=== PATIENT | female | born 1995 ===

== ENCOUNTER 2019-07-19 20:15 | Emergency (ER) | payer SELFPAY ==
[2019-07-19 20:21] VITALS: BP 128/85
--- NOTE | 2019-07-19 20:26 | Event Note ---
ED Screening Note Date of service: 07/19/19 Time: 20:23 ED Screening Note: This initial assessment/diagnostic orders/clinical plan/treatment(s) is/are subject to change based on patients health status, clinical progression and re- assessment by fellow clinical providers in the ED. Further treatment and workup at subsequent clinical providers discretion. Patient/guardian urged not to elope from the ED as their condition may be serious if not clinically assessed and managed. 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 He further states that Tylenol, Motrin and Dayquil with no resolution.
== END 2019-07-20 01:20 | disposition left against medical advice (07) ==
LOC: ED 20:15
DX: R50.9 Fever, unspecified (principal); R05 Cough; Z53.21 Procedure and treatment not carried out due to patient leaving prior to being seen by health care provider

== ENCOUNTER 2019-07-20 11:07 | Inpatient (IN) | payer OTHER ==
[2019-07-20] MEDS ORDERED: IBUPROFEN 600 MG TAB PO ONE (11:39)
[2019-07-20] MEDS ORDERED: ACETAMINOPHEN 325 MG TAB PO ONE ×2 (11:40→22:10)
--- NOTE | 2019-07-20 11:41 | Emergency Department Report ---
Blank Doc - Documentation Documentation: 23-year-old female that presents with fever, tachycardia, cough, sore throat. This initial assessment/diagnostic orders/clinical plan/treatment(s) is/are subject to change based on patient's health status, clinical progression and re- assessment by fellow clinical providers in the ED. Further treatment and workup at subsequent clinical providers discretion. Patient/guardians urged not to elope from the ED as their condition may be serious if not clinically assessed and managed. Initial orders include: 1- Patient sent to [facility] for further evaluation and treatment 2- flu/strep swabs 3- tylneol 4- CXR
[2019-07-20 13:01] LABS: Bilirubin,Urine NEG (Negative); Blood,Urine LG (Negative); Color,Urine Red (Yellow); HCG Qualitative,Urine Negative (Negative); Mucus,Urine 2+ /HPF; RBC,Urine > 182.0 /HPF (0.0-6.0); Urobilinogen,Urine < 2.0 mg/dL (<2.0)
--- NOTE | 2019-07-20 13:56 | XRay Report ---
CHEST 2 VIEWS INDICATION / CLINICAL INFORMATION: fever/cough. COMPARISON: None available. FINDINGS: SUPPORT DEVICES: None. HEART / MEDIASTINUM: No significant abnormality. LUNGS / PLEURA: Airspace opacities are noted along the right lower lobe. The lungs are otherwise solomon r. No significant pleural effusion. No pneumothorax. ADDITIONAL FINDINGS: No significant additional findings. IMPRESSION: Suspected right lower lobe pneumonia. Follow-up PA and lateral chest radiographs in 2-3 weeks are rec ommended to document clearing. Signer Name: Audi Rico MD Signed: 07/20/2019 1:52 PM Workstation Name: [id number]
[2019-07-20] MEDS ORDERED: SODIUM CHLORIDE 0.9% 1000 ML 1,000 ML IV ONE ×3 (15:04→17:58)
--- NOTE | 2019-07-20 15:21 | Emergency Department Report ---
<ROSA MARIA DIOP - Last Filed: 07/20/19 17:58> - General Chief Complaint: Upper Respiratory Infection Stated Complaint: FEVER,COUGH Time Seen by Provider: 07/20/19 11:39 Source: patient Mode of arrival: Ambulatory Limitations: No Limitations - History of Present Illness Initial Comments: 23-year-old female presents to the emergency room complaining of cough headache sore throat chest pain with deep breaths for 4 days. Patient denies any nausea or vomiting or fever. Patient presented to the emergency room tachycardic low-grade fever 99.9. MD Complaint: fever, cough, sore throat, other (Chest pain) Onset/Timin -: days(s) Severity scale (0 -10): 9 Consistency: constant Improves With: nothing Worsens With: deep breaths Associated Symptoms: headache, sore throat, cough, chest pain, shortness of breath Treatments Prior to Arrival: none - Related Data Allergies Allergy/AdvReac Type Severity Reaction Status Date / Time No Known Allergies Allergy Verified 07/20/19 15:12 ED Review of Systems Comment: All other systems reviewed and negative ED Past Medical Hx - Past Medical History Previous Medical History?: No - Surgical History Past Surgical History?: No - Social History Smoking Status: Never Smoker Substance Use Type: None ED Physical Exam - General Limitations: No Limitations General appearance: alert, in no apparent distress - Head Head exam: Present: atraumatic, normocephalic - Eye Eye exam: Present: normal appearance - ENT ENT exam: Present: mucous membranes moist - Neck Neck exam: Present: normal inspection, full ROM - Cardiovascular Cardiovascular Exam: Present: tachycardia - GI/Abdominal GI/Abdominal exam: Present: soft, normal bowel sounds - Neurological Exam Neurological exam: Present: alert, oriented X3 - Psychiatric Psychiatric exam: Present: normal affect, normal mood - Skin Skin exam: Present: warm, dry, intact, normal color. Absent: rash ED Course - Reevaluation(s) Reevaluation #1: 07/20/19 17:03 Patient has been reevaluated by this provider. Patient reports that she feels much better. Heart rate is still elevated at 1 11-1 14. She is satting 100%. Chest discomfort has improved some. We will initiate another liter of fluids to help improve her heart rate. ED Medical Decision Making - Lab Data Result diagrams: 07/20/19 15:34 07/20/19 15:34 Laboratory Tests 07/20/19 07/20/19 07/20/19 12:42 15:34 15:34 WBC 19.2 H RBC 4.73 Hgb 13.9 Hct 42.4 MCV 90 MCH 29 MCHC 33 RDW 13.8 Plt Count 292 Lymph % (Auto) 10.7 L [place] % (Auto) 6.8 Eos % (Auto) 0.3 Baso % (Auto) 0.2 Lymph # 2.1 [place] # 1.3 H Eos # 0.1 Baso # 0.0 Seg Neutrophils % 82.0 H Seg Neutrophils # 15.8 H Sodium 137 Potassium 3.4 L Chloride 100.6 Carbon Dioxide 18 L Anion Gap 22 BUN 11 Creatinine 0.6 L Estimated GFR > 60 BUN/Creatinine Ratio 18 Glucose 86 Lactic Acid Calcium 10.1 Total Bilirubin 0.50 AST 36 ALT 63 H Alkaline Phosphatase 125 Total Protein 8.5 H Albumin 4.0 Albumin/Globulin Ratio 0.9 Urine Color Red Urine Turbidity Cloudy Urine pH 5.0 Ur Specific [place] 1.021 Urine Protein 100 mg/dl Urine Glucose (UA) Neg Urine Ketones 20 Urine Blood Lg Urine Nitrite Neg Urine Bilirubin Neg Urine Urobilinogen < 2.0 Ur Leukocyte Esterase Neg Urine WBC (Auto) 10.0 H Urine RBC (Auto) > 182.0 U Epithel Cells (Auto) 9.0 Urine Mucus 2+ Urine HCG, Qual Negative Influenza A (Rapid) Influenza B (Rapid) Group A Strep Rapid 07/20/19 07/20/19 15:34 Unknown WBC RBC Hgb Hct MCV MCH MCHC RDW Plt Count Lymph % (Auto) [place] % (Auto) Eos % (Auto) Baso % (Auto) Lymph # [place] # Eos # Baso # Seg Neutrophils % Seg Neutrophils # Sodium Potassium Chloride Carbon Dioxide Anion Gap BUN Creatinine Estimated GFR BUN/Creatinine Ratio Glucose Lactic Acid 1.70 Calcium Total Bilirubin AST ALT Alkaline Phosphatase Total Protein Albumin Albumin/Globulin Ratio Urine Color Urine Turbidity Urine pH Ur Specific [place] Urine Protein Urine Glucose (UA) Urine Ketones Urine Blood Urine Nitrite Urine Bilirubin Urine Urobilinogen Ur Leukocyte Esterase Urine WBC (Auto) Urine RBC (Auto) U Epithel Cells (Auto) Urine Mucus Urine HCG, Qual Influenza A (Rapid) Negative Influenza B (Rapid) Negative Group A Strep Rapid Negative - Radiology Data Radiology results: report reviewed Patient: LADONNA SALGADO MR#: [id number] : 1995 Acct:[id number] Age/Sex: 23 / F ADM Date: 07/20/19 Loc: ED Attending Dr: Ordering Physician: JASWINDER CARMONA NP Date of Service: 07/20/19 Procedure(s): XR chest routine 2V Accession Number(s): [id number] cc: JASWINDER CARMONA NP Fluoro Time In Minutes: CHEST 2 VIEWS INDICATION / CLINICAL INFORMATION: fever/cough. COMPARISON: None available. FINDINGS: SUPPORT DEVICES: None. HEART / MEDIASTINUM: No significant abnormality. LUNGS / PLEURA: Airspace opacities are noted along the right lower lobe. The lungs are otherwise clear. No significant pleural effusion. No pneumothorax. ADDITIONAL FINDINGS: No significant additional findings. IMPRESSION: Suspected right lower lobe pneumonia. Follow-up PA and lateral chest radiographs in 2-3 weeks are recommended to document clearing. Signer Name: Audi Rico MD Signed: 07/20/2019 1:52 PM Workstation Name: [id number] Transcribed By: HARRISON Dictated By: Audi Rico MD Electronically Authenticated By: Audi Rico MD Signed Date/Time: 07/20/19 1352 DD/ 1351 TD/TT: - Medical Decision Making 23-year-old female presents to the emergency room complaining of cough headache sore throat chest pain with deep breaths for 4 days. Patient denies any nausea or vomiting or fever. Patient presented to the emergency room tachycardic low-grade fever 99.9. Chest x-ray shows right lower lobe pneumonia with elevated WBCs of 19.2. Urinalysis has 10 WBCs. Patient has been given 2 L of fluid 500 mg of azithromycin IV. After second liter of normal saline patient is still tachycardic between 107 and 117. Initiated 1 more liter. If patient continues to be tachycardic we will consider hospital admission. ED Disposition Clinical Impression: Pneumonia, Upper respiratory infection Condition: Stable Instructions: Viral Pneumonia (ED), Bacterial Pneumonia (ED), Pneumonia (ED) Additional Instructions: Make sure to follow up with the primary care physician as discussed. Take all your medications as you've been prescribed. If you have any worsening symptoms or develop new symptoms please return to ED immediately. Referrals: PRIMARY CARE, [Primary Care Provider] - 3-5 Days <ZOHAIB CORBETT A - Last Filed: 07/20/19 19:00> ED Course - Reevaluation(s) Reevaluation #2: 07/20/19 18:58 Patient is stable in no acute distress at present. She has IV fluid infusing. Denies any pain at present. Patient to have vital signs recheck after second liter of IV fluid infused. ED Medical Decision Making - Lab Data Result diagrams: 07/20/19 15:34 07/20/19 15:34 - Medical Decision Making Patient stable in no acute distress. I spoke with Dr. Glover regarding patient and he wants me to sign off chart to ALBERTO oncoming. Vital signs to be rechecked after second liter of normal saline. <YANET BURR - Last Filed: 07/20/19 21:48> ED Review of Systems ROS: Stated complaint: FEVER,COUGH Other details as noted in HPI ED Course Vital Signs 07/20/19 07/20/19 07/20/19 11:37 12:00 14:43 Temperature 99.9 F H 99.0 F Pulse Rate 139 H Respiratory 20 20 Rate Blood Pressure 154/76 Blood Pressure [Right] O2 Sat by Pulse Oximetry 07/20/19 07/20/19 17:45 20:31 Temperature 100.9 F H Pulse Rate 116 H 142 H Respiratory 20 20 Rate Blood Pressure Blood Pressure 140/80 [Right] O2 Sat by Pulse 100 100 Oximetry ED Medical Decision Making - Lab Data Result diagrams: 07/20/19 15:34 07/20/19 15:34 Critical care attestation.: If time is entered above; I have spent that time in minutes in the direct care of this critically ill patient, excluding procedure time. ED Disposition Is pt being admited?: Yes Does the pt Need Aspirin: No
[2019-07-20] MEDS ORDERED: AZITHROMYCIN 500 MG in SODIUM CHLORIDE 0.9% 250ML 250 ML IV ONE (15:30)
[2019-07-20 15:57] LABS: Basophils % (Auto) 0.2 % (0.0-1.8); Eosinophils # (Auto) 0.1 K/mm3 (0.0-0.4); Eosinophils % (Auto) 0.3 % (0.0-4.3); Hematocrit 42.4 % (30.3-42.9); Hemoglobin 13.9 gm/dl (10.1-14.3); Lymphocytes # (Auto) 2.1 K/mm3 (1.2-5.4); Lymphocytes % (Auto) 10.7 % (13.4-35.0); Mean Corpuscular HGB Conc 33 % (30-34); Mean Corpuscular Volume 90 fl (79-97); Monocytes # (Auto) 1.3 K/mm3 (0.0-0.8); Monocytes % (Auto) 6.8 % (0.0-7.3); Platelet Count 292 K/mm3 (140-440); Red Blood Count 4.73 M/mm3 (3.65-5.03); Red Cell Distribution Width 13.8 % (13.2-15.2)
[2019-07-20 16:17] LABS: Alanine Aminotransferase 63 units/L (7-56); BUN/Creatinine Ratio 18; Blood Urea Nitrogen 11 mg/dL (7-17); Calcium 10.1 mg/dL (8.4-10.2); Hemolysis Index 0
--- NOTE | 2019-07-20 23:19 | History and Physical Report ---
History of Present Illness History of present illness: 23-year-old woman with no medical problems comes emergency room for evaluation. The patient present with complaints of sore throat, cough nonproductive, headache started on Thursday. Also complaining of malaise, urinary frequency, denies travel, sick contacts, she has been staying at home. Patient will be admitted for pneumonia, suspect covid Review Of Systems: Constitutional: no weight loss, Ears, eyes, nose, mouth and throat: no nasal congestion, no nasal discharge, no sinus pressure, blurry vision, diplopia Neck: No neck pain or rigidity. Cardiovascular: No palpitations, chest pain Respiratory: No shortness of breath, cough Gastrointestinal: No hematochezia Genitourinary : no dysuria Musculoskeletal: no muscle ache , joint pain Integumentary: no rash, no pruritis Neurological: no parathesias, focal weakness Endocrine: no cold or heat intolerance, no polyuria or polydipsia Hematologic/Lymphatic: no easy bruising, no easy bleeding, no gland swelling Allergic/Immunologic: no urticaria, no angioedema. PAST MEDICAL HISTORY: None PAST SURGICAL HISTORY: None SOCIAL HISTORY: Denies alcohol, tobacco, drugs FAMILY HISTORY: Hypertension Medications and Allergies Allergies Allergy/AdvReac Type Severity Reaction Status Date / Time No Known Allergies Allergy Verified 07/20/19 15:12 Home Medications Medication Instructions Recorded Confirmed Last Taken Type levoFLOXacin [Levaquin TAB] 500 mg PO QDAY #5 tablet 07/22/19 Unknown Rx Active Meds: Active Medications Enoxaparin Sodium (Enoxaparin) 40 mg SUB-Q QDAY ATTILA Exam - Physical Exam Narrative exam: Gen. appearance: Patient lying in bed, no apparent distress HEENT: Normocephalic, atraumatic, pupils equally round and reactive to light, extraocular movement intact, and no sclericterus,. No JVD or thyromegaly or nodule,neck supple, no carotid bruit ,mucous membranes moist, no exudate or erythema Heart: S1, S2, regular rate and rhythm Lungs: Crackles bilaterally, breathing comfortable Abdomen: Positive bowel sounds, nontender, nondistended, no organomegaly Extremity: no edema, cyanosis, clubbing Skin: No rash, nodules, warm, dry Neuro: speech is fluent, moves extremities, sensory intact - Constitutional Vitals: Temp Pulse Resp BP Pulse Ox 100.9 F H 142 H 18 140/80 100 07/20/19 20:31 07/20/19 20:31 07/20/19 22:23 07/20/19 20:31 07/20/19 20:31 Results - Labs CBC & Chem 7: 07/22/19 07:03 07/22/19 07:03 Labs: Abnormal lab results 07/20/19 07/20/19 07/20/19 Range/Units 12:42 15:34 15:34 WBC 19.2 H (4.5-11.0) K/mm3 Lymph % (Auto) 10.7 L (13.4-35.0) % [place] # 1.3 H (0.0-0.8) K/mm3 Seg Neutrophils % 82.0 H (40.0-70.0) % Seg Neutrophils # 15.8 H (1.8-7.7) K/mm3 Potassium 3.4 L (3.6-5.0) mmol/L Carbon Dioxide 18 L (22-30) mmol/L Creatinine 0.6 L (0.7-1.2) mg/dL ALT 63 H (7-56) units/L Total Protein 8.5 H (6.3-8.2) g/dL Urine WBC (Auto) 10.0 H (0.0-6.0) /HPF - Imaging and Cardiology EKG: image reviewed Chest x-ray: report reviewed Assessment and Plan Assessment Pneumonia possible coronavirus/UTI Start Rocephin, azithromycin Consult infectious disease, follow cultures COVID screen was done, placed on droplet, contact precautions Hypokalemia, replete potassium DVT prophylaxis
[2019-07-21] MEDS ORDERED: ONDANSETRON 4 MG/2 ML INJ IV PRN (00:20)
[2019-07-21] MEDS ORDERED: ACETAMINOPHEN 325 MG TAB PO PRN (00:20)
[2019-07-21] MEDS ORDERED: POTASSIUM CHLORIDE ER 20 MEQ TAB PO ONE (01:23)
--- NOTE | 2019-07-21 09:03 | Progress Note ---
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 * 2 view CXR IMPRESSION: Suspected right lower lobe pneumonia. Follow-up PA and lateral chest radiographs in 2-3 weeks are recommended to document clearing RLL Pneumonia possible coronavirus/UTI: Start Rocephin, azithromycin, Consult infectious disease, follow cultures COVID screen was done, test sent on 07/21/19 placed on droplet, contact precautions Hypokalemia, replete potassium DVT prophylaxis History Interval history: Patient was seen and examined. Follow-up on current diagnosis of PNA. Overnight uneventful as no events directly reported to me. Patient denies any chest pain, nausea/vomiting or severe headaches. Imaging, nursing note, chart, labs and old chart reviewed. Discussed with patient. Hospitalist Physical - Physical exam Narrative exam: Gen: ill appearing, mild increase access muscle, orientated. HEENT: NCAT, EOMI, PERRL, OP Clear Neck: supple, no adenopathy, no thyromegaly, no JVD CVS/Heart: Regular tachycardia normal S1S2, pulses present bilaterally Chest/Lungs: coarse bs right, Symmetrical chest expansion, good air entry bilaterally GI/Abdomen: soft, NTND, good bowel sounds, no guarding or rebound /Bladder: no suprapubic tenderness, no CVA or paraspinal tenderness Extermity/Skin: no c/c/e, no obvious rash MSK: FROM x 4 Neuro: CN 2-12 grossly intact, no new focal deficits Psych: calm - Constitutional Vitals: Temp Pulse Resp BP Pulse Ox 99.3 F 101 H 20 112/64 99 07/21/19 06:51 07/21/19 06:51 07/21/19 06:51 07/21/19 06:51 07/21/19 06:51 Results - Labs CBC & Chem 7: 07/20/19 15:34 07/20/19 15:34 Labs: Laboratory Last Values WBC 19.2 K/mm3 (4.5-11.0) H 07/20/19 15:34 RBC 4.73 M/mm3 (3.65-5.03) 07/20/19 15:34 Hgb 13.9 gm/dl (10.1-14.3) 07/20/19 15:34 Hct 42.4 % (30.3-42.9) 07/20/19 15:34 MCV 90 fl (79-97) 07/20/19 15:34 MCH 29 pg (28-32) 07/20/19 15:34 MCHC 33 % (30-34) 07/20/19 15:34 RDW 13.8 % (13.2-15.2) 07/20/19 15:34 Plt Count 292 K/mm3 (140-440) 07/20/19 15:34 Lymph % (Auto) 10.7 % (13.4-35.0) L 07/20/19 15:34 [place] % (Auto) 6.8 % (0.0-7.3) 07/20/19 15:34 Eos % (Auto) 0.3 % (0.0-4.3) 07/20/19:34 Baso % (Auto) 0.2 % (0.0-1.8) 07/20/19 15:34 Lymph # 2.1 K/mm3 (1.2-5.4) 07/20/19 15:34 [place] # 1.3 K/mm3 (0.0-0.8) H 07/20/19 15:34 Eos # 0.1 K/mm3 (0.0-0.4) 07/20/19 15:34 Baso # 0.0 K/mm3 (0.0-0.1) 07/20/19 15:34 Seg Neutrophils % 82.0 % (40.0-70.0) H 07/20/19 15:34 Seg Neutrophils # 15.8 K/mm3 (1.8-7.7) H 07/20/19 15:34 Sodium 137 mmol/L (137-145) 07/20/19 15:34 Potassium 3.4 mmol/L (3.6-5.0) L 07/20/19 15:34 Chloride 100.6 mmol/L (98-107) 07/20/19 15:34 Carbon Dioxide 18 mmol/L (22-30) L 07/20/19 15:34 Anion Gap 22 mmol/L 07/20/19 15:34 BUN 11 mg/dL (7-17) 07/20/19 15:34 Creatinine 0.6 mg/dL (0.7-1.2) L 07/20/19 15:34 Estimated GFR > 60 ml/min 07/20/19 15:34 BUN/Creatinine Ratio 18 % 07/20/19 15:34 Glucose 86 mg/dL (65-100) 07/20/19 15:34 Lactic Acid 1.70 mmol/L (0.7-2.0) 07/20/19 15:34 Calcium 10.1 mg/dL (8.4-10.2) 07/20/19 15:34 Total Bilirubin 0.50 mg/dL (0.1-1.2) 07/20/19 15:34 AST 36 units/L (5-40) 07/20/19 15:34 ALT 63 units/L (7-56) H 07/20/19 15:34 Alkaline Phosphatase 125 units/L (35-129) 07/20/19 15:34 Total Protein 8.5 g/dL (6.3-8.2) H 07/20/19 15:34 Albumin 4.0 g/dL (3.9-5) 07/20/19 15:34 Albumin/Globulin Ratio 0.9 % 07/20/19 15:34 Urine Color Red (Yellow) 07/20/19 12:42 Urine Turbidity Cloudy (Clear) 07/20/19 12:42 Urine pH 5.0 (5.0-7.0) 07/20/19 12:42 Ur Specific [place] 1.021 (1.003-1.030) 07/20/19 12:42 Urine Protein 100 mg/dl mg/dL (Negative) 07/20/19 12:42 Urine Glucose (UA) Neg mg/dL (Negative) 07/20/19 12:42 Urine Ketones 20 mg/dL (Negative) 07/20/19 12:42 Urine Blood Lg (Negative) 07/20/19 12:42 Urine Nitrite Neg (Negative) 07/20/19 12:42 Urine Bilirubin Neg (Negative) 07/20/19 12:42 Urine Urobilinogen < 2.0 mg/dL (<2.0) 07/20/19 12:42 Ur Leukocyte Esterase Neg (Negative) 07/20/19 12:42 Urine WBC (Auto) 10.0 /HPF (0.0-6.0) H 07/20/19 12:42 Urine RBC (Auto) > 182.0 /HPF (0.0-6.0) 07/20/19 12:42 U Epithel Cells (Auto) 9.0 /HPF (0-13.0) 07/20/19 12:42 Urine Mucus 2+ /HPF 07/20/19 12:42 Urine HCG, Qual Negative (Negative) 07/20/19 12:42 Influenza A (Rapid) Negative (Negative) 07/20/19 Unknown Influenza B (Rapid) Negative (Negative) 07/20/19 Unknown Group A Strep Rapid Negative (Negative) 07/20/19 Unknown [place]/IV: IV Catheter Type [Right INT / Saline Lock Antecubital] Active Medications - Current Medications Current Medications: Generic Name Dose Route Start Last Admin Trade Name Freq PRN Reason Stop Dose Admin Acetaminophen 650 mg 07/21/19 00:20 Tylenol PO Q4H PRN Pain MILD(1-3)/Fever >100.5/GARCIA Azithromycin 500 mg 07/21/19 10:00 Zithromax PO QDAY [facility] Enoxaparin Sodium 40 mg 07/21/19 10:00 Enoxaparin SUB-Q QDAY [facility] Ceftriaxone Sodium 1 gm in 50 mls @ 100 mls/hr 07/21/19 10:00 Rocephin/Ns 1 Gm/50 Ml IV Q24HR [facility] Protocol Ondansetron HCl 4 mg 07/21/19 00:20 Zofran IV Q8H PRN Nausea And Vomiting Sodium Chloride 10 ml 07/21/19 10:00 Sodium Chloride Flush Syringe 10 Ml IV BID ATTILA Sodium Chloride 10 ml 07/21/19 00:20 Sodium Chloride Flush Syringe 10 Ml IV PRN PRN LINE FLUSH
[2019-07-21] MEDS: ENOXAPARIN 40 MG/0.4 ML INJ SUB-Q SCH (10:00)
[2019-07-21] MEDS: cefTRIAXone/NS 1 GM/50 ML 1 GM/50 ML BAG IV SCH (10:01)
--- NOTE | 2019-07-21 12:38 | Consultation ---
History of Present Illness - Reason for Consult Consult date: 07/21/19 - History of Present Illness 23 yo F no PMHx admitted to the hospital with with complaints of sore throat, cough, and headache. She notes her symptoms began 4 days prior to admission and are associated with malaise, urinary frequency. She otherwise denies any sick contacts or travel, and reports practising social distancing by staying home recently. Febrile to 100.9 with a white count of 19. She is tachycardic. Currently receiving ceftriaxone and azithromycin. Influenza negative. UA with pyuria. Urine and Strep cultures pending. Imaging personally reviewed: CXR: RLL pneumonia. Review of Systems: Bold if positive, otherwise negative General: fevers, chills, rigors HEENT: visual disturbance, diplopia, eye pain Respiratory: cough, sputum, hemoptysis, shortness of breath Cardiovascular: chest pain, syncope Gastrointestinal: nausea, vomiting, diarrhea, abdominal pain Genitourinary: dysuria, hematuria, flank pain Musculoskeletal: neck pain, back pain, joint pain, edema Neurologic: headaches, seizures Hematologic: easy bruising or bleeding Endocrine: night sweats, acute weight loss Skin: rash, jaundice, redness Psychiatric: suicidal, homicidal ideation Past History Past Medical History: No medical history Past Surgical History: No surgical history Social history: no significant social history Family history: no significant family history Medications and Allergies Allergies Allergy/AdvReac Type Severity Reaction Status Date / Time No Known Allergies Allergy Verified 07/20/19 15:12 Home Medications Medication Instructions Recorded Confirmed Last Taken Type No Known Home Medications [No 07/20/19 07/20/19 Unknown History Reported Home Medications] Active Meds: Active Medications Acetaminophen (Tylenol) 650 mg PO Q4H PRN PRN Reason: Pain MILD(1-3)/Fever >100.5/GARCIA Azithromycin (Zithromax) 500 mg PO QDAY ATTILA Enoxaparin Sodium (Enoxaparin) 40 mg SUB-Q QDAY [facility] Last Admin: 07/21/19 10:00 Dose: 40 mg Documented by: Ceftriaxone Sodium (Rocephin/Ns 1 Gm/50 Ml) 1 gm in 50 mls @ 100 mls/hr IV Q24HR [facility]; Protocol Last Admin: 07/21/19 10:01 Dose: 100 mls/hr Documented by: Ondansetron HCl (Zofran) 4 mg IV Q8H PRN PRN Reason: Nausea And Vomiting Sodium Chloride (Sodium Chloride Flush Syringe 10 Ml) 10 ml IV BID ATTILA Sodium Chloride (Sodium Chloride Flush Syringe 10 Ml) 10 ml IV PRN PRN PRN Reason: LINE FLUSH Physical Examination - Physical Exam Narrative exam: Physical Exam: Constitutional: Alert, cooperative. No acute distress Head, Ears, Nose: Normocephalic, atraumatic. External ears, nose normal Eyes: Conjunctivae/corneas clear. No icterus. No ptosis. Neck: Supple, no meningeal signs Oral: dentition fair, no thrush Cardiovascular: S1, S2 normal. Respiratory: Right sided diminished breath sounds. GI: Soft, non-tender; bowel sounds normal. No peritoneal signs. Musculoskeletal: No pedal edema, no cyanosis. Skin: No rash or abscess Hem/Lymphatic: No palpable cervical or supraclavicular nodes. No lymphangitis Psych: Mood ok. Affect normal Neurological: Awake, alert, oriented. No gross abnormality - Constitutional Vitals: Vital Signs Temp Pulse Resp BP Pulse Ox 99.3 F 101 H 20 112/64 99 07/21/19 06:51 07/21/19 06:51 07/21/19 06:51 07/21/19 06:51 07/21/19 06:51 Temperature -Last 24 Hours Temperature 99.3 F Temperature 98.0 F Temperature 99 F Temperature 100.9 F Temperature 99.0 F Results - Labs CBC & Chem 7: 07/20/19 15:34 07/20/19 15:34 Labs: Abnormal lab results 07/20/19 07/20/19 07/20/19 Range/Units 12:42 15:34 15:34 WBC 19.2 H (4.5-11.0) K/mm3 Lymph % (Auto) 10.7 L (13.4-35.0) % [place] # 1.3 H (0.0-0.8) K/mm3 Seg Neutrophils % 82.0 H (40.0-70.0) % Seg Neutrophils # 15.8 H (1.8-7.7) K/mm3 Potassium 3.4 L (3.6-5.0) mmol/L Carbon Dioxide 18 L (22-30) mmol/L Creatinine 0.6 L (0.7-1.2) mg/dL ALT 63 H (7-56) units/L Total Protein 8.5 H (6.3-8.2) g/dL Urine WBC (Auto) 10.0 H (0.0-6.0) /HPF Assessment and Plan Cultures: Urine culture 07/20/2019 pending Strep test: pending. A/P: 23 yo F no PMHx admitted to the hospital with concern for pneumonia. #COVID-19 rule out: patient with fevers and pneumonia see on XR. Survey filled out already, follow up testing results. Patient with high white count and unilateral disease makes COVID-19 less likely, but certainly not ruled out. Or dered labs associated with COVID as below. #Right sided pneumonia: Continue ceftriaxone and azithromycin pending procalcitonin. Monitor fevers and white count. #Pyuria: low level pyuria and significant RBC on UA, unlikely to be cause of fevers and leukocytosis. Recs: -Ordered procal, CRP, ferritin, d-dimer for morning labs -Continue empiric ceftriaxone and azithromycin -Continue droplet and contact precautions pending [facility] testing for COVID-19 -Follow up [facility] testing. -Follow up urine cultures. Thank you for the consult, we will continue to follow. Matthew Vasquez MD [facility] M: [phone] O: [phone] F: [phone]
[2019-07-21] MEDS: AZITHROMYCIN 250 MG TAB PO SCH (18:08)
[2019-07-22 06:16] VITALS: BP 112/47
[2019-07-22 07:38] LABS: Basophils % (Auto) 0.4 % (0.0-1.8); Eosinophils # (Auto) 0.2 K/mm3 (0.0-0.4); Eosinophils % (Auto) 2.3 % (0.0-4.3); Hematocrit 39.7 % (30.3-42.9); Hemoglobin 13.4 gm/dl (10.1-14.3); Lymphocytes # (Auto) 1.7 K/mm3 (1.2-5.4); Lymphocytes % (Auto) 17.2 % (13.4-35.0); Mean Corpuscular HGB Conc 34 % (30-34); Mean Corpuscular Volume 88 fl (79-97); Monocytes # (Auto) 0.8 K/mm3 (0.0-0.8); Monocytes % (Auto) 7.7 % (0.0-7.3); Platelet Count 342 K/mm3 (140-440); Red Cell Distribution Width 13.8 % (13.2-15.2)
[2019-07-22 08:01] LABS: BUN/Creatinine Ratio 10; Blood Urea Nitrogen 6 mg/dL (7-17); Calcium 9.3 mg/dL (8.4-10.2); Hemolysis Index 30
[2019-07-22] MEDS: cefTRIAXone/NS 1 GM/50 ML 1 GM/50 ML BAG IV SCH (10:52)
[2019-07-22] MEDS: ENOXAPARIN 40 MG/0.4 ML INJ SUB-Q SCH (10:53)
[2019-07-22] MEDS: AZITHROMYCIN 250 MG TAB PO SCH (10:53)
--- NOTE | 2019-07-22 11:41 | Progress Note ---
Assessment and Plan Cultures: Urine culture 07/20/2019 pending Strep test: pending. A/P: 23 yo F no PMHx admitted to the hospital with concern for pneumonia. #COVID-19 rule out: patient with fevers and pneumonia see on XR. Survey filled out already, follow up testing results. Patient with high white count and unilateral disease makes COVID-19 less likely, but certainly not ruled out. Ordered labs associated with COVID as below. Procal is elevated, and white count returned to normal today. #Right sided pneumonia: Continue ceftriaxone and azithromycin given elevated procalcitonin. Monitor fevers and white count. #Pyuria: low level pyuria and significant RBC on UA, unlikely to be cause of fevers and leukocytosis. Recs: -Continue empiric ceftriaxone and azithromycin -Continue droplet and contact precautions pending [facility] testing for COVID-19 -If discharging the patient prior to COVID-19 testing results, please discharged with levofloxacin 500 mg every 24 hours to complete 5 days of antibiotics. Stop date: 07/26/2019 -Follow up [facility] testing. Specimens have been collected on 07/21/2019, awaiting results. - Patient may be discharged when medically stable if testing swabs have been obtained. Upon discharge patient should self-quarantine at home until COVID testing returns. If negative, self-quarantine may end. If positive patient should self-quarantine for 14 days from symptom beginning. Public health and infection prevention will follow up with patients to notify them of their test results. Patients should return to hospital regardless if they have worsening fevers or respiratory status. Thank you for the consult, we will sign off for now. Please call us if the patient begins to decompensate or if any other questions arise. Matthew Vasquez MD [facility] M: [phone] O: [phone] F: [phone] Subjective Date of service: 07/22/19 Interval history: Afebrile with an improved white count now to 10. Procalcitonin elevated. Objective - Exam Narrative Exam: Physical Exam: Constitutional: Alert, cooperative. No acute distress Eyes: Conjunctivae/corneas clear. No icterus. No ptosis. Neck: Supple, no meningeal signs Oral: dentition fair, no thrush Cardiovascular: S1, S2 normal. Respiratory: Right sided diminished breath sounds. GI: Soft, non-tender; bowel sounds normal. No peritoneal signs. Musculoskeletal: No pedal edema, no cyanosis. Skin: No rash or abscess Hem/Lymphatic: No palpable cervical or supraclavicular nodes. No lymphangitis Psych: Mood ok. Affect normal Neurological: Awake, alert, oriented. No gross abnormality - Constitutional Vitals: Vital Signs Temp Pulse Resp BP Pulse Ox 98.4 F 83 16 112/47 96 07/22/19 05:33 07/22/19 05:33 07/22/19 05:33 07/22/19 05:33 07/22/19 05:33 Temperature -Last 24 Hours Temperature 98.4 F Temperature 99.4 F Temperature 98.8 F Temperature 99.4 F - Labs CBC & Chem 7: 07/22/19 07:03 07/22/19 07:03 Labs: Abnormal lab results 07/22/19 07/22/19 07/22/19 Range/Units 07:03 07:03 07:03 [place] % (Auto) 7.7 H (0.0-7.3) % Seg Neutrophils % 72.4 H (40.0-70.0) % D-Dimer 648.34 H (0-234) ng/mlDDU Carbon Dioxide 18 L (22-30) mmol/L BUN 6 L (7-17) mg/dL Creatinine 0.6 L (0.7-1.2) mg/dL Glucose 105 H (65-100) mg/dL C-Reactive Protein (0.00-1.30) mg/dL 07/22/19 Range/Units 07:03 [place] % (Auto) (0.0-7.3) % Seg Neutrophils % (40.0-70.0) % D-Dimer (0-234) ng/mlDDU Carbon Dioxide (22-30) mmol/L BUN (7-17) mg/dL Creatinine (0.7-1.2) mg/dL Glucose (65-100) mg/dL C-Reactive Protein 20.10 H (0.00-1.30) mg/dL
[2019-07-22] MEDS ORDERED: SODIUM CHLORIDE IV SCH (12:00)
--- NOTE | 2019-07-22 12:09 | Discharge Summary ---
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 * 2 view CXR IMPRESSION: Suspected right lower lobe pneumonia. Follow-up PA and lateral chest radiographs in 2-3 weeks are recommended to document clearing RLL Aspiration Pneumonia possible coronavirus UTI COVID screen was done, test sent on 07/21/19 placed on droplet, contact precautions Hypokalemia, replete potassium Disposition: DC-01 TO HOME OR SELFCARE Time spent for discharge: 35 minutes Core Measure Documentation - Palliative Care Palliative Care/ Comfort Measures: Not Applicable - Core Measures Any of the following diagnoses?: none - VTE Discharge Requirements Deep Vein Thrombosis/Pulmonary Embolism Present on Admission: No Has pt received <5 days of overlap therapy or INR<2.0: No Anticoagulant overlap therapy prescribed at discharge: No Contraindication No Overlap Therapy order at DC: Not Indicated Exam - Physical Exam Narrative exam: Gen: ill appearing, mild increase access muscle, orientated. HEENT: NCAT, EOMI, PERRL, OP Clear Neck: supple, no adenopathy, no thyromegaly, no JVD CVS/Heart: Regular tachycardia normal S1S2, pulses present bilaterally Chest/Lungs: coarse bs right, Symmetrical chest expansion, good air entry bilaterally GI/Abdomen: soft, NTND, good bowel sounds, no guarding or rebound /Bladder: no suprapubic tenderness, no CVA or paraspinal tenderness Extermity/Skin: no c/c/e, no obvious rash MSK: FROM x 4 Neuro: CN 2-12 grossly intact, no new focal deficits Psych: calm - Constitutional Vitals: Temp Pulse Resp BP Pulse Ox 98.4 F 83 16 112/47 96 07/22/19 05:33 07/22/19 05:33 07/22/19 05:33 07/22/19 05:33 07/22/19 09:00 Plan Activity: other (no strenous activity unless cleared by PCP) Diet: regular Additional Instructions: Upon discharge YOU should self-quarantine at home until COVID testing returns. If negative, self-quarantine may end. If positive patien t should self-quarantine for 14 days from symptom beginning. Public health and infection prevention will follow up with patients to notify them of their test results. Patients should return to hospital regardless if they have worsening fevers or respiratory status. Follow up with: IRVIN PUGH MD [Staff Physician] - 7 Days [facility] [place] [Provider Group] - 7 Days Prescriptions: levoFLOXacin [Levaquin TAB] 500 mg PO QDAY #5 tablet
== END 2019-07-22 14:40 | disposition home or self-care (01) | DRG 689 ==
LOC: ED 11:07 → 3A 22:50
PROVIDERS: ADMIT Internal Medicine; ATTEND Internal Medicine
DX: N39.0 Urinary tract infection, site not specified (principal); J69.0 Pneumonitis due to inhalation of food and vomit; E87.6 Hypokalemia; Z82.49 Family history of ischemic heart disease and other diseases of the circulatory system; Z20.828 Contact with and (suspected) exposure to other viral communicable diseases
CPT/HCPCS: 36415; 71046; 80048; 80053; 81001; 81025; 82140; 82728; 84145; 85025; 85379; 86140; 87086; 87116; 87400; 87430; G0378; J0456; J0696; J1650; J7030; J7050